=== PATIENT | female | born 1990 | race Caucasian/White ===

== ENCOUNTER 2017-10-11 01:04 | Emergency (ER) | payer BC ==
--- NOTE | 2017-10-11 01:27 | EDPHY ---
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 She came to the emergency room for bilateral lower extremity pain and swelling concerned that she may have DVTs. She reports to me that she has significant family history of DVTs her dad and mom have history of DVTs and her dad has a history of PE. She is unsure about genetic underlying clotting disorder. Past Medical History: No medical history Past Surgical History: Denies surgical history Social History: Denies drugs alcohol tobacco. Family History: Noncontributory ROS REVIEW OF SYSTEMS: A comprehensive 10 point review of systems is otherwise negative aside from elements mentioned in the history of present illness. Exam Constitutional appears well nontoxic no acute distress, triage nursing summary reviewed, vital signs reviewed, awake/alert. Eyes normal conjunctivae and sclera, EOMI, PERRLA. HENT normal inspection, atraumatic, moist mucus membranes, no epistaxis, neck supple/ no meningismus, no raccoon eyes. Respiratory clear to auscultation bilaterally, normal breath sounds, no respiratory distress, no wheezing. Cardiovascular rate normal, regular rhythm, no murmur, no edema, distal pulses normal. Gastrointestinal soft, non-tender, no rebound, no guarding, normal bowel sounds, no distension, no pulsatile mass. Genitourinary no CVA tenderness. Musculoskeletal bilateral lower extremities are neurovascular intact good cap refill, warm extremities, good distal pulses, no evidence of abnormal swelling on exam no pitting edema, no signs externally of DVT, no midline vertebral tenderness, full range of motion, no calf swelling, no tenderness of extremities , no meningismus, good pulses, neurovascularly intact. Skin pink, warm, & dry, no rash, skin atraumatic. Neurologic awake, alert and oriented x 3, AAOx3, moves all 4 extremities equally, motor intact, sensory intact, CN II-XII intact, normal cerebellar, normal vision, normal speech. Psychiatric normal mood/affect. Heme/Lymph/Immune no lymphadenopathy. Differential Diagnosis: Includes but is not limited to in a particular order muscle cramps, rhabdomyolysis, electrolyte disturbance, DVTs Medical Decision Making: Plan for this patient bilateral lower extremity ultrasound, check basic blood work electrolytes and CK. Re-evaluate. Re-evaluation: Bilateral lower extremity ultrasound shows no evidence of DVTs in either leg. Map René. Blood work is reassuring. Patient having leg cramps, recommend gentle massage, light exercise, anti- inflammatory pain medicine Additionally return precautions discussed. Source: Patient - Personal History LMP (Females 10-55): Now Current Tetanus Diphtheria and Acellular Pertussis (TDAP): Yes - Medical/Surgical History Hx Asthma: No Hx Chronic Respiratory Disease: No Hx Diabetes: No Hx Cardiac Disease: No Hx Renal Disease: No Hx Cirrhosis: No Hx Alcoholism: No Hx HIV/AIDS: No Hx Splenectomy or Spleen Trauma: No Other PMH: LIGAMENT TIGHTENING L SHOULDER - Social History Smoking Status: Never smoked Constitutional: Initial Vital Signs Temperature (C) 36.5 C 10/11/17 01:09 Heart Rate 60 10/11/17 01:09 Respiratory Rate 16 10/11/17 01:09 Blood Pressure 129/86 H 10/11/17 01:09 O2 Sat (%) 97 10/11/17 01:09 O2 Delivery Mode Room Air Allergies/Adverse Reactions: No Known Allergies Allergy (Unverified 10/11/17 01:08) Home Medications: Medication Instructions Recorded NK [No Known Home Meds] 10/11/17 Medical Decision Making - Data Points Laboratory Results: Laboratory Results 10/11/17 01:30 10/11/17 01:30 10/11/17 10/11/17 01:30 01:30 WBC 5.42 10^3/uL 10^3/uL (3.80-9.50) RBC 4.76 10^6/uL 10^6/uL (4.18-5.33) Hgb 15.3 g/dL g/dL (12.6-16.3) Hct 43.6 % % (38.0-47.0) MCV 91.6 fL fL (81.5-99.8) MCH 32.1 pg pg (27.9-34.1) MCHC 35.1 g/dL g/dL (32.4-36.7) RDW 12.0 % % (11.5-15.2) Plt Count 168 10^3/uL 10^3/uL (150-400) MPV 10.8 fL fL (8.7-11.7) Neut % (Auto) 36.1 % L % (39.3-74.2) Lymph % (Auto) 53.0 % H % (15.0-45.0) Trinity % (Auto) 7.4 % % (4.5-13.0) Eos % (Auto) 2.4 % % (0.6-7.6) Baso % (Auto) 0.9 % % (0.3-1.7) Nucleat RBC Rel Count 0.0 % % (0.0-0.2) Absolute Neuts (auto) 1.96 10^3/uL 10^3/uL (1.70-6.50) Absolute Lymphs (auto) 2.87 10^3/uL 10^3/uL (1.00-3.00) Absolute Monos (auto) 0.40 10^3/uL 10^3/uL (0.30-0.80) Absolute Eos (auto) 0.13 10^3/uL 10^3/uL (0.03-0.40) Absolute Basos (auto) 0.05 10^3/uL 10^3/uL (0.02-0.10) Absolute Nucleated RBC 0.00 10^3/uL 10^3/uL (0-0.01) Immature Gran % 0.2 % % (0.0-1.1) Immature Gran # 0.01 10^3/uL 10^3/uL (0.00-0.10) Sodium 141 mEq/L mEq/L (135-145) Potassium 4.3 mEq/L mEq/L (3.3-5.0) Chloride 106 mEq/L mEq/L (97-110) Carbon Dioxide 23 mEq/l mEq/l (22-31) Anion Gap 12 mEq/L mEq/L (8-16) BUN 14 mg/dL mg/dL (7-23) Creatinine 0.8 mg/dL mg/dL (0.6-1.0) Estimated GFR > 60 Glucose 80 mg/dL mg/dL (70-100) Calcium 9.3 mg/dL mg/dL (8.5-10.4) Creatine Kinase 72 IU/L IU/L (0-156) Departure - Departure Disposition: Home, Routine, Self-Care Clinical Impression: Leg cramps Condition: Good Instructions: Leg Cramps (ED), Muscle Cramp (ED) Additional Instructions: 1. Recommend gentle massage 2. Anti-inflammatory pain medicine like Tylenol Motrin 3. Return if worsening symptoms questions or concerns. Referrals: NONE *PRIMARY CARE P,. [Primary Care Provider] - As per Instructions
[2017-10-11 01:41] LABS: PLATELET COUNT 168 10^3/uL (150-400)
[2017-10-11 01:51] LABS: CREATINE KINASE 72 IU/L (0-156)
[2017-10-11 02:31] VITALS: BP 108/74
== END 2017-10-11 02:31 | disposition home or self-care (01) ==
DX: R25.2 Cramp and spasm (principal)

== ENCOUNTER 2017-11-04 14:13 | Emergency (ER) | payer BC, OTHER ==
--- NOTE | 2017-11-04 14:52 | EDPHY ---
H & P Time Seen by Provider: 11/04/17 14:25 HPI/ROS: CHIEF COMPLAINT: Swelling and pain left calf HISTORY OF PRESENT ILLNESS: 27-year-old female presents to the emergency department by private vehicle with concerns about continued ongoing swelling and pain in her left calf. Patient states that she was in [place] for 2 months in May and since she has been home she has had some pain in her left calf. She was seen in the emergency department approximately 3 weeks ago and had ultrasound of bilateral lower extremities which were negative for DVTs. Patient states that she has a strong family history of DVTs both in her parents as well as in 1st cousins. She does not have any pleuritic chest pain specifically. She does not feel short of breath. Denies any reported trauma. She states that when she is at rest or specially lying down will sometimes keep her up at night and she has more pain. She feels that the pain is extending more proximally now to the medial part of her thigh. She feels that the pain is getting worse is concerned about DVT. REVIEW OF SYSTEMS: Constitutional: No fever, no chills. Eyes: No double or blurry vision. ENT: No sore throat. Respiratory: No cough, no shortness of breath. Cardiac: No chest pain. Gastrointestinal: No abdominal pain, vomiting or diarrhea. Genitourinary: No dysuria. Musculoskeletal: No neck or back pain. Skin: No rashes. Neurological: No headache. Past Medical/Surgical History: Orthopedic surgery Social History: Single Smoking Status: Never smoked Physical Exam: General Appearance: Alert, no distress. Eyes: Pupils equal and round. Extraocular motions are all intact. ENT: Mouth: Mucous membranes moist. Respiratory: No wheezing, rhonchi, or rales, lungs are clear to auscultation. Cardiovascular: Regular rate and rhythm. Gastrointestinal: Abdomen is soft and nontender, no masses, no rebound or guarding, bowel sounds normal. Neurological: Alert and oriented x 3, cranial nerves II through XII grossly intact Skin: Warm and dry, no rashes. Musculoskeletal: Nontender to palpate along the cervical, thoracic or lumbar spine. Neck is supple. Straight leg raise is negative bilaterally. Extremities: Full range of motion and no peripheral edema. Tenderness with palpation to the left mid calf. No ecchymosis. No appreciable swelling. Normal sensation to light touch with normal 2 point discrimination. Strong dorsalis pedis pulse on the dorsal aspect of her left foot. Psychiatric: Patient is oriented X 3, there is no agitation. Constitutional: Initial Vital Signs Temperature (C) 36.6 C 11/04/17 14:15 Heart Rate 60 11/04/17 14:15 Respiratory Rate 16 11/04/17 14:15 Blood Pressure 136/75 H 11/04/17 14:15 O2 Sat (%) 97 11/04/17 14:15 O2 Delivery Mode Room Air Allergies/Adverse Reactions: No Known Allergies Allergy (Unverified 10/11/17 01:08) Home Medications: Medication Instructions Recorded NK [No Known Home Meds] 10/11/17 Medical Decision Making - Diagnostics Imaging Results: Imaging Impressions Extremity Venous Study 11/04/17 14:48 Impression: Negative for left lower extremity DVT. Imaging: Discussed imaging studies w/ call center support consultant Radiologist ED Course/Re-evaluation: 27-year-old female presents to the emergency department feeling pain in the left leg. Patient is concerned about DVT. She had ultrasound of her left lower extremity 3 weeks ago which was negative and now her pain is getting much worse and she feels that it is more swollen. Repeat ultrasound of the left lower extremity reveals no evidence of DVT. She has no symptoms in her right lower extremity. I did discuss with the patient the possibility of symptoms being related to lumbar radiculopathy. She has a normal neurologic examination. She has no back pain. Her gait is normal. Patient is comfortable with follow-up with primary care provider as well as orthopedic referral. Differential Diagnosis: Including but not limited to DVT, muscular strain, muscular spasm, [place] cyst Departure - Departure Disposition: Home, Routine, Self-Care Clinical Impression: Pain of left calf Condition: Good Instructions: Muscle Cramp (ED) Additional Instructions: No evidence of DVT on ultrasound today. Return to the emergency department if you develop increasing pain or swelling or if you feel worse in any way. You should have close follow-up with primary care provider to recheck. Activity as tolerated. Referrals: Bhavya Gibson MD [Medical Doctor] - As per Instructions (Neurosurgeon on-call) Maribel Herrera MD [Medical Doctor] - As per Instructions (Primary care provider bellperson) Luis Baptiste MD [Medical Doctor] - As per Instructions (Orthopedic surgeon on- call)
[2017-11-04 16:07] VITALS: BP 113/72
== END 2017-11-04 16:07 | disposition home or self-care (01) ==
DX: M79.662 Pain in left lower leg (principal)